=== PATIENT | male | born 1970 | race Caucasian/White ===

== ENCOUNTER 2017-11-23 13:19 | Emergency (ER) | payer BC, OTHER ==
[2017-11-23 13:44] VITALS: BP 134/91
--- NOTE | 2017-11-23 14:15 | UC ---
Neck Pain HPI - HPI Summary HPI Summary: Pt presents with c/o of non tender "enlarged lymph node" on neck just proximal to medial end of left clavicle. Pt denies injury or recent illness or hx of thyroid disorders. Pt states he has intermittent difficulty swallowing. - History of Current Complaint Chief Complaint: UCGeneralIllness Stated Complaint: THROAT COMPLAINT Time Seen by Provider: 11/23/17 13:39 Hx Obtained From: Patient Onset/Duration Of Injury/Symptoms: Weeks Mechanism Of Injury: No Known Trauma Timing: Constant Onset/Duration: Gradual Onset, Lasting Weeks, Still Present Severity: Mild Pain Intensity: 2 Location: Discrete At: - left side anterior distal neck near medial end of left clavicle. Aggravating Factors: Nothing Alleviating Factors: Nothing Associated Signs & Symptoms: Positive: Swelling - Risk Factors Meningitis Risk Factors: Negative - Allergies/Home Medications Allergies/Adverse Reactions: Allergies Allergy/AdvReac Type Severity Reaction Status Date / Time No Known Allergies Allergy Verified 11/23/17 13:41 Home Medications: Home Medications Ibuprofen 400 mg PO Q8H 11/23/17 [History Confirmed 11/23/17] Nebivolol HCl [Bystolic] 10 mg PO DAILY 11/23/17 [History Confirmed 11/23/17] Omeprazole 20 mg PO DAILY 11/23/17 [History Confirmed 11/23/17] PMH/Surg Hx/FS Hx/Imm Hx Previously Healthy: Yes - Surgical History Surgical History: None - Family History Known Family History: Positive: Cardiac Disease - Social History Occupation: Employed Full-time Lives: With Family Alcohol Use: Rare Substance Use Type: None Smoking Status (MU): Never Smoked Tobacco Have You Smoked in the Last Year: No Review Of Systems Constitutional: Positive: Negative Skin: Positive: Negative Eyes: Positive: Negative ENT: Positive: Sore Throat Respiratory: Positive: Shortness Of Breath Cardiovascular: Positive: Negative Gastrointestinal: Positive: Negative Genitourinary: Positive: Negative Musculoskeletal: Positive: Negative Neurological: Positive: Negative Psychological: Positive: Negative All Other Systems Reviewed And Are Negative: Yes Physical Exam Triage Information Reviewed: Yes Appearance: Well-Appearing Vital Signs: Initial Vital Signs Temp 98.4 F 11/23/17 13:37 Pulse 71 11/23/17 13:37 Resp 17 11/23/17 13:37 BP 134/91 11/23/17 13:37 Pulse Ox 98 11/23/17 13:37 Vital Signs Reviewed: Yes Eye Exam: Normal Eyes: Positive: Conjunctiva Inflamed ENT Exam: Normal ENT: Positive: Other - palpable large, irregular shaped soft mass, ~ 4cm X 2 cm left anterior distal neck. Dental Exam: Normal Neck exam: Other Neck: Positive: Other: - left distal anterior neck, irregualr shaped soft non tender mass, ~ 4-5 cm X 2 cm Respiratory Exam: Normal Cardiovascular Exam: Normal Musculoskeletal Exam: Normal Neurological Exam: Normal Psychological Exam: Normal Skin Exam: Normal Neck Pain Course/Dx - Course Course Of Treatment: I called the pt's PCP to discuss my findings with PE. The PCP faxed an order for thyroid ultrasound and blood work and requested pt make a follow up appointment . - Differential Dx/Diagnosis Differential Dx/HQI/PQRI: Other - neck mass. Provider Diagnoses: left side neck mass Discharge - Sign-Out/Discharge Documenting (check all that apply): Discharge/Admit/Transfer - Discharge Plan Condition: Stable Disposition: HOME Patient Education Materials: Soft Tissue Mass (ED) Referrals: Teagan Oliva NP [Primary Care Provider] - As Soon As Possible Additional Instructions: Please follow up with your PCP as soon as possible. - Billing Disposition and Condition Condition: STABLE Disposition: Home
== END 2017-11-23 14:22 | disposition home or self-care (01) ==
LOC: UCCORT 13:19
DX: R22.1 Localized swelling, mass and lump, neck (principal); R13.10 Dysphagia, unspecified
CPT/HCPCS: 99201; G0463